=== PATIENT | female | born 1980 | race Caucasian/White ===

== ENCOUNTER 2019-05-01 10:39 | Emergency (ER) | payer MEDICARE ==
--- NOTE | 2019-05-01 11:53 | EDM.PDOC ---
ED HPI GENERAL MEDICAL PROBLEM - General Chief Complaint: DETECTIVE HOMICIDE SQUAD Problem Stated Complaint: 7 WKS PG WITH ABD PAIN Time Seen by Provider: 05/01/19 11:51 Source of Information: Reports: Patient History Limitations: Reports: No Limitations - History of Present Illness INITIAL COMMENTS - FREE TEXT/NARRATIVE: pt had a syncopal episode about 2 weeks ago. She was seen in ER. She then went back for follow up and she found that she was . Onset: Other (Pt is having severe mid abdomanal pain and rt lower abdomanal pain. ) Duration: Hour(s): Location: Reports: Abdomen, Other (pt had her last period Mar 16. ) Associated Symptoms: Reports: No Other Symptoms Right Lower Abdomen Pain Score (Numeric/FACES): 5 - Related Data Allergies Allergy/AdvReac Type Severity Reaction Status Date / Time No Known Allergies Allergy Verified 05/01/19 11:09 Home Meds: Home Meds NK [No Known Home Meds] 05/01/19 [History] Past Medical History Gastrointestinal History: Reports: None DETECTIVE HOMICIDE SQUAD History: Reports: Musculoskeletal History: Reports: Back Pain, Chronic Neurological History: Reports: Concussion Hematologic History: Reports: Anemia, Blood Transfusion(s), Iron Deficiency Immunologic History: Reports: Other (See Below) Other Immunologic History: lupus, RA Oncologic (Cancer) History: Reports: Other (See Below) Other Oncologic History: spindal cell sarcoma - Past Surgical History Head Surgeries/Procedures: Reports: None GI Surgical History: Reports: Cholecystectomy Neurological Surgical History: Reports: Spinal Fusion, Other (See Below) Musculoskeletal Surgical History: Reports: None Oncologic Surgical History: Reports: None Dermatological Surgical History: Reports: None Social & Family History - Tobacco Use Smoking Status *Q: Current Every Day Smoker Years of Tobacco use: 15 Packs/Tins Daily: 0.1 Used Tobacco, but Quit: No - Caffeine Use Caffeine Use: Reports: Coffee - Recreational Drug Use Recreational Drug Use: Yes Drug Use in Last 12 Months: Yes Recreational Drug Type: Reports: Marijuana/Hashish Recreational Drug Use Frequency: Daily ED ROS GENERAL - Review of Systems Review Of Systems: See Below Constitutional: Reports: No Symptoms HEENT: Reports: No Symptoms Respiratory: Reports: No Symptoms Cardiovascular: Reports: No Symptoms Endocrine: Reports: No Symptoms GI/Abdominal: Reports: Other (pain in the rt lower abdoman. ) : Reports: No Symptoms, Other ( dark vag spotting) Musculoskeletal: Reports: No Symptoms Skin: Reports: No Symptoms Neurological: Reports: No Symptoms Psychiatric: Reports: Anxiety ED EXAM - Physical Exam Exam: See Below Text/Narrative:: pt arrived with dark vag spotting,last period Mar 16. Pain in rt lower abdoman. Pt is about 4 weeks . She has a Quantative HCG which is lower than it should be. Exam Limited By: No Limitations General Appearance: Alert, Anxious, Mild Distress Ears: Normal TMs Nose: Normal Inspection Throat/Mouth: Normal Inspection Head: Atraumatic Neck: Normal Inspection Respiratory/Chest: No Respiratory Distress Cardiovascular: Regular Rate, Rhythm GI/Abdominal Exam: Other ( tender in the rt lower abdoman. Not true guarding. ) Rectal Exam: Deferred (Female) Exam: Deferred for Placenta Previa Back Exam: Normal Inspection Extremities: Normal Inspection Course - Vital Signs Last Recorded V/S: Last Vital Signs Temp 36.9 C 05/01/19 11:09 Pulse 91 05/01/19 11:09 Resp 16 05/01/19 11:09 BP 168/90 H 05/01/19 11:09 Pulse Ox 95 05/01/19 11:09 - Orders/Labs/Meds Labs: Laboratory Tests 05/01/19 05/01/19 05/01/19 Range/Units 11:44 11:44 11:44 WBC 14.0 H (4.5-11.0) K/uL RBC 4.61 (3.30-5.50) M/uL Hgb 14.3 (12.0-15.0) g/dL Hct 44.3 (36.0-48.0) % MCV 96 (80-98) fL MCH 31 (27-31) pg MCHC 32 (32-36) % Plt Count 365 (150-400) K/uL Neut % (Auto) 62 (36-66) % Lymph % (Auto) 30 (24-44) % [place] % (Auto) 7 H (2-6) % Eos % (Auto) 2 (2-4) % Baso % (Auto) 0 (0-1) % Sodium 136 L (140-148) mmol/L Potassium 3.9 (3.6-5.2) mmol/L Chloride 100 (100-108) mmol/L Carbon Dioxide 24 (21-32) mmol/L Anion Gap 15.9 H (5.0-14.0) mmol/L BUN 11 (7-18) mg/dL Creatinine 0.7 (0.6-1.0) mg/dL Est Cr Clr Drug Dosing 83.03 mL/min Estimated GFR (MDRD) > 60 (>60) Glucose 92 (74-106) mg/dL Calcium 9.3 (8.5-10.1) mg/dL Total Bilirubin 0.3 (0.2-1.0) mg/dL AST 13 L (15-37) U/L ALT 80 H (12-78) U/L Alkaline Phosphatase 99 (46-116) U/L C-Reactive Protein (0.0-0.3) mg/dL Total Protein 8.4 H (6.4-8.2) g/dL Albumin 4.3 (3.4-5.0) g/dL Globulin 4.1 H (2.3-3.5) g/dL Albumin/Globulin Ratio 1.1 L (1.2-2.2) HCG, Quant 894 H (0-6) mIU/mL Urine Color (YELLOW) Urine Appearance (CLEAR) Urine pH (5.0-8.0) Ur Specific [place] (1.008-1.030) Urine Protein (NEGATIVE) mg/dL Urine Glucose (UA) (NEGATIVE) mg/dL Urine Ketones (NEGATIVE) mg/dL Urine Occult Blood (NEGATIVE) Urine Nitrite (NEGATIVE) Urine Bilirubin (NEGATIVE) Urine Urobilinogen (0.2-1.0) EU/dL Ur Leukocyte Esterase (NEGATIVE) Urine RBC (0-5) Urine WBC (0-5) Ur Epithelial Cells Amorphous Sediment Urine Bacteria Urine Mucus 05/01/19 05/01/19 Range/Units 11:54 12:06 WBC (4.5-11.0) K/uL RBC (3.30-5.50) M/uL Hgb (12.0-15.0) g/dL Hct (36.0-48.0) % MCV (80-98) fL MCH (27-31) pg MCHC (32-36) % Plt Count (150-400) K/uL Neut % (Auto) (36-66) % Lymph % (Auto) (24-44) % Hopkins % (Auto) (2-6) % Eos % (Auto) (2-4) % Baso % (Auto) (0-1) % Sodium (140-148) mmol/L Potassium (3.6-5.2) mmol/L Chloride (100-108) mmol/L Carbon Dioxide (21-32) mmol/L Anion Gap (5.0-14.0) mmol/L BUN (7-18) mg/dL Creatinine (0.6-1.0) mg/dL Est Cr Clr Drug Dosing mL/min Estimated GFR (MDRD) (>60) Glucose (74-106) mg/dL Calcium (8.5-10.1) mg/dL Total Bilirubin (0.2-1.0) mg/dL AST (15-37) U/L ALT (12-78) U/L Alkaline Phosphatase (46-116) U/L C-Reactive Protein 0.36 H (0.0-0.3) mg/dL Total Protein (6.4-8.2) g/dL Albumin (3.4-5.0) g/dL Globulin (2.3-3.5) g/dL Albumin/Globulin Ratio (1.2-2.2) HCG, Quant (0-6) mIU/mL Urine Color Yellow (YELLOW) Urine Appearance Clear (CLEAR) Urine pH 5.5 (5.0-8.0) Ur Specific [place] 1.025 (1.008-1.030) Urine Protein Negative (NEGATIVE) mg/dL Urine Glucose (UA) Negative (NEGATIVE) mg/dL Urine Ketones Negative (NEGATIVE) mg/dL Urine Occult Blood Moderate H (NEGATIVE) Urine Nitrite Negative (NEGATIVE) Urine Bilirubin Negative (NEGATIVE) Urine Urobilinogen 0.2 (0.2-1.0) EU/dL Ur Leukocyte Esterase Negative (NEGATIVE) Urine RBC 5-10 H (0-5) Urine WBC 0-5 (0-5) Ur Epithelial Cells Few Amorphous Sediment Few Urine Bacteria Few Urine Mucus Many - Re-Assessments/Exams Free Text/Narrative Re-Assessment/Exam: 05/01/19 15:08 pt had a Us which shows possible enlargement of the rt tube, concerning for a tubal preg Pt had a Quantative HCG which was lower than predicted. Free Text/Narrative Re-Assessment/Exam: 05/03/19 21:08 pt did return sat nite and her hcg was down to 832. She does have a appt with DEENA on sunday, She was advised to keep that appt and it pain should increase of heavy bleeding to come in immediately. Departure - Departure Time of Disposition: 14:56 Disposition: Home, Self-Care 01 Condition: Fair Clinical Impression: Ectopic , tubal, 4 weeks gestation of - Discharge Information Instructions: Ectopic , [id number] Referrals: PCP,None [Primary Care Provider] - Forms: ED Department Discharge Care Plan Goals: push fluids, rtc Sat for a HCG--come sat pm about 6 pm-- I will review the numbers at that time--pt can wait until I can give results. rtc immediately if there is heavy vag bleeding or marked increase in pain, tylenol as needed for pain. appt with Bella Cotton on Sunday . Sepsis Event Note - Evaluation Sepsis Screening Result: No Definite Risk - Focused Exam Date Exam was Performed: 05/03/19 Time Exam was Performed: 21:08
--- NOTE | 2019-05-01 14:22 | CRLUS ---
INDICATION: First trimester scan, right lower quadrant pain and vaginal bleeding. COMPARISON: None. TECHNIQUE: 2D lo-scale imaging of the pelvis was performed. FINDINGS: Sonographic imaging demonstrates a tiny 3 mm cystic focus within the endometrial lining. This could potentially reflect an early intrauterine gestation. However, this structure is too small and there is no discernible yolk sac to accurately predict an intrauterine . There is free fluid in the pelvic cul-de-sac with fluid extending into the right adnexa. The right ovary has indistinct margins and heterogeneous echotexture. There is a central irregular 4 x 3 mm cystic area within this soft tissue structure. I cannot with certainty exclude a right adnexal ectopic . The soft tissue within the right adnexa measures approximately 4 x 3 x 3 cm. Left ovary appeared normal measuring 3.6 x 1.9 x 2.9 cm. IMPRESSION: Indeterminate findings with abnormal free-fluid and questionable complex cystic and solid structure in the right adnexa. Findings could indicate a potential ectopic . Would recommend correlation with serial beta HCG measurements and follow-up sonogram. Dictated by Sreedhar Zamora MD @ 05/01/2019 2:21:48 PM Dictated by: Sreedhar Zamora MD @ 05/01/2019 14:21:57 (Electronically Signed)
--- NOTE | 2019-05-02 16:20 | CRLUS ---
Final Report: INDICATION: First trimester scan, right lower quadrant pain and vaginal bleeding. COMPARISON: None. TECHNIQUE: 2D ol-scale imaging of the pelvis was performed. FINDINGS: Sonographic imaging demonstrates a tiny 3 mm cystic focus within the endometrial lining. This could potentially reflect an early intrauterine gestation. However, this structure is too small and there is no discernible yolk sac to accurately predict an intrauterine . There is free fluid in the pelvic cul-de-sac with fluid extending into the right adnexa. The right ovary has indistinct margins and heterogeneous echotexture. There is a central irregular 4 x 3 mm cystic area within this soft tissue structure. I cannot with certainty exclude a right adnexal ectopic . The soft tissue within the right adnexa measures approximately 4 x 3 x 3 cm. Left ovary appeared normal measuring 3.6 x 1.9 x 2.9 cm. IMPRESSION: Indeterminate findings with abnormal free-fluid and questionable complex cystic and solid structure in the right adnexa. Findings could indicate a potential ectopic . Would recommend correlation with serial beta HCG measurements and follow-up sonogram. Dictated by Sreedhar Zamora MD @ 05/01/2019 2:21:48 PM Dictated by: Sreedhar Zamora MD @ 05/01/2019 14:21:57 Signed by: Sreedhar Zamora MD @05/01/2019 2:21:57 PM (Electronic Signature) MTDD
== END 2019-05-01 15:13 | disposition home or self-care (01) ==
LOC: JP.ED 10:39
DX: O00.101 Right tubal pregnancy without intrauterine pregnancy (principal); O99.331 Smoking (tobacco) complicating pregnancy, first trimester; Z3A.01 Less than 8 weeks gestation of pregnancy
CPT/HCPCS: 36415; 76801; 76817; 80053; 81001; 84702; 85025; 86140; 99284-25